=== PATIENT | male | born 1950 | race Caucasian/White ===

== ENCOUNTER 2018-03-15 21:10 | Emergency (ER) | payer BC, MEDICARE ==
[2018-03-15] MEDS ORDERED: HYDROcodone/Acetaminophen 5/325 mg Tablet ONE (21:41)
[2018-03-15] MEDS ORDERED: Ibuprofen 200 MG TAB ONE (21:41)
[2018-03-15 22:03] LABS: Bilirubin Small (Negative); Blood, Urine Negative (Negative); Clarity Hazy (Clear); Glucose, Urine (Dipstick) Negative (Negative); Leukocyte Negative (Negative); Nitrite Negative (Negative); Protein, Urine (Dipstick) 30 mg/dL (Neg-Trace); Specific Gravity, Urine 1.025 (1.005-1.030); pH, Urine 5.5 (5.0-9.0)
[2018-03-15 22:16] LABS: RBC/HPF 0-3 HPF (0-3); Squamous Epithelial 0-3 HPF (0-3); WBC/HPF 0-3 HPF (0-3)
[2018-03-15 22:17] LABS: Crystals/HPF 1+ AMORPH URATES HPF (Negative)
[2018-03-15] MEDS ORDERED: Sulfameth/Trimethoprim DS 800-160mg TAB ONE (22:28)
== END 2018-03-15 22:30 | disposition home or self-care (01) ==
LOC: BURERS 21:10
DX: N41.9 Inflammatory disease of prostate, unspecified (principal); F17.200 Nicotine dependence, unspecified, uncomplicated
CPT/HCPCS: 81003; 81015; 99284

== ENCOUNTER 2018-06-06 16:00 | Outpatient (CLI) | payer MEDICARE ==
--- NOTE | 2018-06-06 20:02 | RAD ---
CHEST TWO VIEWS: 06/06/18 Comparison is made with the 01/09/12 study. Hyperinflation of the lungs with flattening of the diaphra gm is consistent with the clinical diagnosis of COPD. The heart size is normal. There are no congesti ve findings, pleural effusion, or focal pulmonary infiltrates. There is no sign of pneumonia. No mass was seen. Mild degenerative changes are seen in the spine. Faint calcification is seen in the aortic arch. IMPRESSION: COPD but no acute findings. POS: HOME
== END 2018-06-06 16:01 | disposition home or self-care (01) ==
LOC: BURRAD 16:00
PROVIDERS: ATTEND Family Medicine
DX: J44.1 Chronic obstructive pulmonary disease with (acute) exacerbation (principal)
CPT/HCPCS: 71046